=== PATIENT | female | born 1950 | race American Indian/Alaskan Native ===

== ENCOUNTER 2021-09-01 18:15 | Emergency (ER) | payer MEDICARE ==
[2021-09-01] MEDS ORDERED: oxyCODONE /ACETAMINOPHEN 5-325MG TAB PO ONE (18:36)
[2021-09-01] MEDS ORDERED: IBUPROFEN 800 MG TAB PO STA (18:36)
--- NOTE | 2021-09-01 18:45 | Emergency Department Report ---
ED General Adult HPI - General Chief complaint: Fall Stated complaint: FELL DOWN STAIRS Time Seen by Provider: 09/01/21 18:25 Source: patient Mode of arrival: Wheelchair Limitations: No Limitations - History of Present Illness Initial comments: 71-year-old -[place] female patient with history of hypertension presents with complaints of left knee and left ankle pain after a fall injury today. Patient states she has chronic issues with her left knee and it suddenly when out while walking down stairs and she fell down 5 stairs. She denies any head injury, loss of consciousness, nausea/vomiting, dizziness, chest pain, abdominal pain, or numbness/tingling/weakness in her limbs. She rates her current pain as a 10/10 in severity. - Related Data Previous Rx's Medication Instructions Recorded Last Taken Type Naproxen [Naprosyn TAB] 500 mg PO BID PRN #20 tablet 09/01/21 Unknown Rx oxyCODONE /ACETAMINOPHEN [Percocet 1 tab PO Q6HR PRN #15 tab 09/01/21 Unknown Rx 5/325] Allergies Allergy/AdvReac Type Severity Reaction Status Date / Time Penicillins Allergy Intermediate Unknown Verified 09/01/21 18:44 ED Review of Systems ROS: Stated complaint: FELL DOWN STAIRS Other details as noted in HPI Constitutional: denies: malaise Respiratory: denies: shortness of breath Cardiovascular: denies: chest pain Gastrointestinal: denies: abdominal pain Musculoskeletal: joint swelling, arthralgia Skin: denies: change in color Neurological: denies: headache, numbness, paresthesias ED Past Medical Hx - Past Medical History Previous Medical History?: Yes Hx Hypertension: Yes Hx Diabetes: Yes Hx Asthma: Yes - Medications Home Medications: Home Medications Medication Instructions Recorded Confirmed Last Taken Type Naproxen [Naprosyn TAB] 500 mg PO BID PRN #20 tablet 09/01/21 Unknown Rx oxyCODONE /ACETAMINOPHEN [Percocet 1 tab PO Q6HR PRN #15 tab 09/01/21 Unknown Rx 5/325] ED Physical Exam - General Limitations: No Limitations General appearance: alert, in no apparent distress, obese - Head Head exam: Present: atraumatic, normocephalic - Eye Eye exam: Present: normal appearance. Absent: scleral icterus - Neck Neck exam: Present: normal inspection, full ROM. Absent: tenderness - Respiratory Respiratory exam: Absent: respiratory distress - Cardiovascular Cardiovascular Exam: Present: regular rate - Expanded Lower Extremity Exam Left Knee exam: Present: full ROM, tenderness. Absent: swelling, abrasion, laceration, ecchymosis, deformity, crepidus, dislocation, erythema Lower Leg exam: Present: full ROM, tenderness (Distal fibular), swelling (Mild distal ). Absent: abrasion, ecchymosis, deformity Ankle exam: Present: tenderness (Lateral ankle). Absent: swelling, abrasion, ecchymosis, deformity Foot/Toe exam: Present: normal inspection Neuro vascular tendon exam: Present: no vascular compromise Gait: Positive: unable to bear weight - Back Exam Back exam: Present: full ROM. Absent: tenderness - Neurological Exam Neurological exam: Present: alert, oriented X3 - Psychiatric Psychiatric exam: Present: normal affect, normal mood - Skin Skin exam: Present: warm, dry, intact, normal color. Absent: rash ED Course Vital Signs 09/01/21 09/01/21 09/01/21 18:23 18:31 20:11 Temperature 97.9 F 97.9 F Pulse Rate 76 68 88 Respiratory 20 22 18 Rate Blood Pressure 196/87 95/63 Blood Pressure 160/87 [Left] O2 Sat by Pulse 95 97 98 Oximetry 09/01/21 20:47 Temperature Pulse Rate Respiratory 18 Rate Blood Pressure Blood Pressure [Left] O2 Sat by Pulse Oximetry - Procedure Description Procedures done: Bulky Subramanian applied along with long leg posterior ankle splint; patient tolerated procedure well; she has normal perfusion and sensation of the toes post procedure and denies any new pain ED Medical Decision Making - Radiology Data Radiology results: report reviewed Left tibia-fibula, 5 views. HISTORY: Fall COMPARISON: None FINDINGS: There is an acute comminuted fractures of proximal third of the fibula with prominent butterfly fragment. There is one half shaft width anterior displacement of the dominant distal fracture fragment. No additional acute fracture. There is cortical thickening of the posterior proximal tibia, may reflect sequela of prior trauma. IMPRESSION: Acute comminuted and displaced butterfly type fracture of the left fibula. - Medical Decision Making 71-year-old -[place] female patient with history of hypertension presents with complaints of left knee and left ankle pain after a fall injury today. Patient states she has chronic issues with her left knee and it suddenly when out while walking down stairs and she fell down 5 stairs. She denies any head injury, loss of consciousness, nausea/vomiting, dizziness, chest pain, abdominal pain, or numbness/tingling/weakness in her limbs. She rates her current pain as a 10/10 in severity. Comminuted proximal fibula fracture noted on x-ray. Discussed patient with Dr. Jimenez who recommends consultation with orthopedics. Discussed patient with Dr. Rosas. Recommends long-leg splint and follow-up with his office on Saturday. Patient is well-appearing and her pain is controlled. She is stable for discharge home. Discussed in detail signs and symptoms that should prompt immediate return to the ED, she verbalizes understanding. Critical care attestation.: If time is entered above; I have spent that time in minutes in the direct care of this critically ill patient, excluding procedure time. ED Disposition Clinical Impression: Displaced comminuted fracture of shaft of left fibula Disposition: HOME / SELF CARE / HOMELESS Is pt being admited?: No Condition: Stable Instructions: Cast or Splint Care, Adult, [id number], Tibial and Fibular Fractures Prescriptions: Naproxen [Naprosyn TAB] 500 mg PO BID PRN #20 tablet PRN Reason: pain oxyCODONE /ACETAMINOPHEN [Percocet 5/325] 1 tab PO Q6HR PRN #15 tab PRN Reason: Pain , Severe (7-10) Referrals: DOMINGO ROSAS MD [Staff Physician] - 09/04/21 Forms: Work/School Release Form(ED)
--- NOTE | 2021-09-01 19:20 | XRay Report ---
Left tibia-fibula, 5 views. HISTORY: Fall COMPARISON: None FINDINGS: There is an acute comminuted fractures of proximal third of the fibula with prominent butte rfly fragment. There is one half shaft width anterior displacement of the dominant distal fracture fr agment. No additional acute fracture. There is cortical thickening of the posterior proximal tibia, m ay reflect sequela of prior trauma. IMPRESSION: Acute comminuted and displaced butterfly type fracture of the left fibula. Signer Name: Cristiano Cohen MD Signed: 09/01/2021 7:16 PM Workstation Name: [id number]
[2021-09-01 20:11] VITALS: BP 160/87
[2021-09-01] MEDS ORDERED: KETOROLAC 60 MG/2 ML INJ IM ONE (20:19)
== END 2021-09-01 22:56 | disposition home or self-care (01) ==
LOC: ED 18:15
DX: S82.492A Other fracture of shaft of left fibula, initial encounter for closed fracture (principal); E11.9 Type 2 diabetes mellitus without complications; I10 Essential (primary) hypertension; J45.909 Unspecified asthma, uncomplicated; Z88.0 Allergy status to penicillin; Z79.899 Other long term (current) drug therapy; W10.8XXA Fall (on) (from) other stairs and steps, initial encounter; Y93.89 Activity, other specified; Y92.89 Other specified places as the place of occurrence of the external cause; Y99.8 Other external cause status
CPT/HCPCS: 29515; 73590; 96372; 99283; J1885